=== PATIENT | male | born 1950 | race Caucasian/White ===

== ENCOUNTER 2017-09-27 17:39 | Inpatient (IN) | payer MEDICARE, BC ==
[~2017-09-27] VITALS: Ht 188 cm; Wt 101.2 kg
[2017-09-27 19:30] VITALS: BP 124/88
[2017-09-27] MEDS ORDERED: DiphenhydrAMINE HCL 25 MG CAPSULE PO PRN (20:15)
[2017-09-27] MEDS ORDERED: MAGNESIUM HYDROXIDE SUSPENSION 30 ML UDCUP PO PRN (20:15)
[2017-09-27] MEDS ORDERED: ACETAMINOPHEN 325 MG TABLET PO PRN (20:15)
[2017-09-27] MEDS ORDERED: DOCUSATE SODIUM 283 MG/5 ML MINI-ENEMA PR PRN (20:15)
[2017-09-27] MEDS: HYDROCODONE/ACETAMINOPHEN 10-325 MG TABLET PO PRN (21:43)
[2017-09-27] MEDS: SENNA 187 MG TABLET PO SCH (21:44)
[2017-09-27] MEDS: LOSARTAN POTASSIUM 25 MG TABLET PO SCH (21:44)
[2017-09-27] MEDS: DOCUSATE SODIUM 100 MG CAPSULE PO SCH (21:44)
[2017-09-27] MEDS: PREGABALIN 75 MG CAPSULE PO SCH (21:45)
[2017-09-27] MEDS: PANTOPRAZOLE SODIUM 40 MG DR TABLET PO SCH (21:45)
[2017-09-27] MEDS: DIVALPROEX SODIUM 500 MG ER TABLET PO SCH (21:45)
[2017-09-27 22:05] LABS: APPEARANCE,URINE CLEAR (CLEAR); BILIRUBIN,URINE NEGATIVE (NEGATIVE); GLUCOSE, URINE (UA) NEGATIVE (NEGATIVE); KETONES,URINE NEGATIVE (NEGATIVE); LEUKOCYTE ESTERASE ,URINE NEGATIVE (NEGATIVE); NITRATE,URINE NEGATIVE (NEGATIVE); OCCULT BLOOD,URINE NEGATIVE (NEGATIVE); PROTEIN,URINE NEGATIVE (NEGATIVE); UROBILINOGEN,URINE 0.2 mg/dL (<=1.0)
[2017-09-27 22:28] LABS: BACTERIA,URINE None Seen /HPF (None Seen); RBC,URINE 0-2 /HPF (0-2); SQUAMOUS EPITHELIAL CELL,UR Few /LPF (None Seen); WBC,URINE 0-2 /HPF (0-5)
[2017-09-28 00:08] VITALS: BP 117/69
[2017-09-28] MEDS: LEVOTHYROXINE SODIUM 50 MCG TABLET PO SCH (06:33)
[2017-09-28] MEDS: MODAFINIL 100 MG TABLET PO SCH (06:33)
[2017-09-28 07:00] LABS: BASOPHILS # (AUTO) 0.06 K/uL (0.00-0.20); EOSINOPHILS # (AUTO) 0.74 K/uL (0.00-0.70); EOSINOPHILS % (AUTO) 11.61 % (1.0-6.0); HEMOGLOBIN 12.7 g/dL (13.5-17.5); LYMPHOCYTES # (AUTO) 1.5 K/uL (1.0-4.8); LYMPHOCYTES % (AUTO) 23.7 % (22.0-44.0); MEAN CORPUSCULAR HEMOGLOBIN 32.4 pg (26.0-34.0); MEAN CORPUSCULAR HGB CONC 33.5 G/dL (31.0-37.0); MEAN CORPUSCULAR VOLUME 97 fL (80-100); MONOCYTES # (AUTO) 0.7 K/uL (0.1-1.0); MONOCYTES % (AUTO) 11.6 % (2.0-9.0); NEUTROPHILS # (AUTO) 3.3 K/uL (1.8-7.7); NEUTROPHILS % (AUTO) 52.1 % (40.0-70.0); PLATELET COUNT (AUTO) 165 K/uL (150-450); RED BLOOD CELL COUNT(AUTO) 3.92 MIL/uL (4.50-5.90); RED CELL DISTRIBUTION WIDTH 12.7 % (11.5-14.5)
[2017-09-28 07:24] LABS: ALBUMIN 3.2 g/dL (3.4-5.0); BILIRUBIN,TOTAL 0.4 mg/dL (0.1-1.0); CALCIUM, TOTAL 9.3 mg/dL (8.8-10.5); CREATININE 1.36 mg/dL (0.60-1.30); TOTAL PROTEIN, SERUM 6.7 g/dL (6.4-8.2)
[2017-09-28 07:35] VITALS: BP 126/78
[2017-09-28] MEDS: LamoTRIgine 100 MG TABLET PO SCH (08:28)
[2017-09-28] MEDS: HYDROCODONE/ACETAMINOPHEN 10-325 MG TABLET PO PRN ×3 (08:28→15:22)
[2017-09-28] MEDS: DIVALPROEX SODIUM 500 MG ER TABLET PO SCH ×2 (08:29→20:52)
[2017-09-28] MEDS: LOSARTAN POTASSIUM 25 MG TABLET PO SCH ×3 (08:29→21:00)
[2017-09-28] MEDS: TAMSULOSIN HCL 0.4 MG CAPSULE PO SCH (08:29)
[2017-09-28] MEDS: PREGABALIN 75 MG CAPSULE PO SCH ×4 (08:29→20:52)
[2017-09-28] MEDS: DOCUSATE SODIUM 100 MG CAPSULE PO SCH ×2 (08:29→20:53)
[2017-09-28] MEDS: PANTOPRAZOLE SODIUM 40 MG DR TABLET PO SCH ×2 (08:30→20:52)
[2017-09-28] MEDS: FENOFIBRATE 160 MG TABLET PO SCH (09:00)
[2017-09-28] MEDS ORDERED: LITHIUM CARBONATE 300 MG TABLET PO SCH (09:00)
[2017-09-28 15:07] VITALS: BP 105/59
[2017-09-28 20:50] VITALS: BP 101/60
[2017-09-28] MEDS: SENNA 187 MG TABLET PO SCH (20:52)
[2017-09-29] VITALS: BP 114/72
[2017-09-29] MEDS ORDERED: LEVO50 PO (02:00)
[2017-09-29] MEDS ORDERED: MODA100 PO (02:00)
[2017-09-29] MEDS ORDERED: PREG75 PO (02:00)
[2017-09-29] MEDS ORDERED: HYDR-4061 PO (02:00)
[2017-09-29] MEDS ORDERED: LITH450CRT PO (02:00)
[2017-09-29] MEDS ORDERED: OMEP20 PO (02:00)
[2017-09-29] MEDS ORDERED: LOSA50TA37 PO (02:00)
[2017-09-29] MEDS ORDERED: FENO67 PO (02:00)
[2017-09-29] MEDS ORDERED: LAMO100 PO (02:00)
[2017-09-29] MEDS ORDERED: CETI-290 PO (02:00)
[2017-09-29] MEDS: LEVOTHYROXINE SODIUM 50 MCG TABLET PO SCH (06:09)
[2017-09-29] MEDS: MODAFINIL 100 MG TABLET PO SCH (06:10)
[2017-09-29] MEDS: TAMSULOSIN HCL 0.4 MG CAPSULE PO SCH (08:43)
[2017-09-29] MEDS: DOCUSATE SODIUM 250 MG CAPSULE PO SCH ×2 (08:43→21:00)
[2017-09-29] MEDS: LOSARTAN POTASSIUM 25 MG TABLET PO SCH ×2 (08:43→21:03)
[2017-09-29] MEDS: LamoTRIgine 100 MG TABLET PO SCH (08:43)
[2017-09-29] MEDS: PANTOPRAZOLE SODIUM 40 MG DR TABLET PO SCH ×2 (08:43→21:04)
[2017-09-29] MEDS: DIVALPROEX SODIUM 500 MG ER TABLET PO SCH ×2 (08:43→21:04)
[2017-09-29] MEDS: LITHIUM CARBONATE 450 MG ER TABLET PO SCH (08:44)
[2017-09-29] MEDS: PREGABALIN 75 MG CAPSULE PO SCH ×4 (08:44→21:04)
[2017-09-29] MEDS: ENOXAPARIN SODIUM 40 MG/0.4 ML PF SYRINGE SQ SCH (08:44)
[2017-09-29] MEDS: FENOFIBRATE 160 MG TABLET PO SCH (08:44)
[2017-09-29 09:25] VITALS: BP 120/72
[2017-09-29] MEDS: HYDROCODONE/ACETAMINOPHEN 10-325 MG TABLET PO PRN ×3 (09:25→21:04)
[2017-09-29 15:08] VITALS: BP 116/68
[2017-09-29] MEDS: SENNA 187 MG TABLET PO SCH (21:00)
[2017-09-29] MEDS ORDERED: NYSTATIN 15 GM POWDER BOTTLE TP SCH (21:00)
[2017-09-29 21:04] VITALS: BP 115/71
[2017-09-29 23:36] VITALS: BP 112/69
[2017-09-30] MEDS: LEVOTHYROXINE SODIUM 50 MCG TABLET PO SCH (05:46)
[2017-09-30] MEDS: MODAFINIL 100 MG TABLET PO SCH (05:47)
[2017-09-30 07:43] VITALS: BP 124/77
[2017-09-30] MEDS: LITHIUM CARBONATE 450 MG ER TABLET PO SCH (09:32)
[2017-09-30] MEDS: LamoTRIgine 100 MG TABLET PO SCH (09:32)
[2017-09-30] MEDS: DIVALPROEX SODIUM 500 MG ER TABLET PO SCH ×2 (09:32→20:35)
[2017-09-30] MEDS: PANTOPRAZOLE SODIUM 40 MG DR TABLET PO SCH ×2 (09:32→20:36)
[2017-09-30] MEDS: FENOFIBRATE 160 MG TABLET PO SCH (09:32)
[2017-09-30] MEDS: LOSARTAN POTASSIUM 25 MG TABLET PO SCH ×2 (09:32→20:39)
[2017-09-30] MEDS: ENOXAPARIN SODIUM 40 MG/0.4 ML PF SYRINGE SQ SCH (09:32)
[2017-09-30] MEDS: PREGABALIN 75 MG CAPSULE PO SCH ×4 (09:33→20:36)
[2017-09-30] MEDS: DOCUSATE SODIUM 250 MG CAPSULE PO SCH ×2 (09:33→20:35)
[2017-09-30] MEDS: TAMSULOSIN HCL 0.4 MG CAPSULE PO SCH (09:33)
[2017-09-30] MEDS: HYDROCODONE/ACETAMINOPHEN 10-325 MG TABLET PO PRN (10:26)
[2017-09-30 16:00] VITALS: BP 99/53
[2017-09-30] MEDS: HYDROCODONE/ACETAMINOPHEN 5-325 MG TABLET PO PRN (16:25)
[2017-09-30] MEDS: SENNA 187 MG TABLET PO SCH (20:35)
[2017-09-30 20:40] VITALS: BP 114/68
[2017-10-01 04:00] VITALS: BP 132/68
[2017-10-01] MEDS: HYDROCODONE/ACETAMINOPHEN 5-325 MG TABLET PO PRN ×4 (04:08→20:09)
[2017-10-01] MEDS: LEVOTHYROXINE SODIUM 50 MCG TABLET PO SCH (06:03)
[2017-10-01] MEDS: MODAFINIL 100 MG TABLET PO SCH (06:03)
[2017-10-01 08:00] VITALS: BP 116/73
[2017-10-01] MEDS: FENOFIBRATE 160 MG TABLET PO SCH (10:04)
[2017-10-01] MEDS: DOCUSATE SODIUM 250 MG CAPSULE PO SCH ×2 (10:04→20:09)
[2017-10-01] MEDS: PREGABALIN 75 MG CAPSULE PO SCH ×4 (10:05→20:10)
[2017-10-01] MEDS: DIVALPROEX SODIUM 500 MG ER TABLET PO SCH ×2 (10:05→20:10)
[2017-10-01] MEDS: PANTOPRAZOLE SODIUM 40 MG DR TABLET PO SCH ×2 (10:05→20:10)
[2017-10-01] MEDS: LITHIUM CARBONATE 450 MG ER TABLET PO SCH (10:05)
[2017-10-01] MEDS: TAMSULOSIN HCL 0.4 MG CAPSULE PO SCH (10:05)
[2017-10-01] MEDS: LamoTRIgine 100 MG TABLET PO SCH (10:05)
[2017-10-01] MEDS: LOSARTAN POTASSIUM 25 MG TABLET PO SCH ×2 (10:05→20:09)
[2017-10-01] MEDS: NYSTATIN 15 GM POWDER BOTTLE TP SCH ×2 (10:06→20:10)
[2017-10-01] MEDS: ENOXAPARIN SODIUM 40 MG/0.4 ML PF SYRINGE SQ SCH (10:06)
[2017-10-01 15:41] VITALS: BP 108/64
[2017-10-01] MEDS: SENNA 187 MG TABLET PO SCH (20:09)
[2017-10-01 20:10] VITALS: BP 119/66
[2017-10-01 23:38] VITALS: BP 126/74
[2017-10-02] MEDS: MODAFINIL 100 MG TABLET PO SCH (06:31)
[2017-10-02] MEDS: LEVOTHYROXINE SODIUM 50 MCG TABLET PO SCH (06:31)
[2017-10-02 07:15] VITALS: BP 110/65
[2017-10-02] MEDS: FENOFIBRATE 160 MG TABLET PO SCH (08:28)
[2017-10-02] MEDS: DOCUSATE SODIUM 250 MG CAPSULE PO SCH ×2 (08:28→21:01)
[2017-10-02] MEDS: TAMSULOSIN HCL 0.4 MG CAPSULE PO SCH (08:28)
[2017-10-02] MEDS: LamoTRIgine 100 MG TABLET PO SCH (08:28)
[2017-10-02] MEDS: PREGABALIN 75 MG CAPSULE PO SCH ×4 (08:28→21:01)
[2017-10-02] MEDS: LOSARTAN POTASSIUM 25 MG TABLET PO SCH ×2 (08:28→21:01)
[2017-10-02] MEDS: ENOXAPARIN SODIUM 40 MG/0.4 ML PF SYRINGE SQ SCH (08:28)
[2017-10-02] MEDS: DIVALPROEX SODIUM 500 MG ER TABLET PO SCH ×2 (08:28→21:01)
[2017-10-02] MEDS: NYSTATIN 15 GM POWDER BOTTLE TP SCH ×3 (08:28→21:01)
[2017-10-02] MEDS: PANTOPRAZOLE SODIUM 40 MG DR TABLET PO SCH ×2 (08:28→21:01)
[2017-10-02] MEDS: LITHIUM CARBONATE 450 MG ER TABLET PO SCH (08:28)
[2017-10-02 09:07] VITALS: BP 137/82
[2017-10-02] MEDS: HYDROCODONE/ACETAMINOPHEN 5-325 MG TABLET PO PRN ×2 (09:08→13:37)
[2017-10-02] MEDS: POLYETHYLENE GLYCOL 3350 17 GM PACKET PO SCH (12:21)
[2017-10-02 15:34] VITALS: BP 102/55
[2017-10-02 21:00] VITALS: BP 116/71
[2017-10-02] MEDS: SENNA 187 MG TABLET PO SCH (21:03)
[2017-10-03 06:00] VITALS: BP 122/79
[2017-10-03] MEDS: LEVOTHYROXINE SODIUM 50 MCG TABLET PO SCH (06:17)
[2017-10-03] MEDS: MODAFINIL 100 MG TABLET PO SCH (06:17)
[2017-10-03 07:44] VITALS: BP 114/72
[2017-10-03] MEDS: NYSTATIN 15 GM POWDER BOTTLE TP SCH ×2 (09:15→20:50)
[2017-10-03] MEDS: POLYETHYLENE GLYCOL 3350 17 GM PACKET PO SCH (09:16)
[2017-10-03] MEDS: ENOXAPARIN SODIUM 40 MG/0.4 ML PF SYRINGE SQ SCH (09:16)
[2017-10-03] MEDS: DOCUSATE SODIUM 250 MG CAPSULE PO SCH ×2 (09:16→20:50)
[2017-10-03] MEDS: LITHIUM CARBONATE 450 MG ER TABLET PO SCH (09:16)
[2017-10-03] MEDS: PREGABALIN 75 MG CAPSULE PO SCH ×4 (09:16→20:50)
[2017-10-03] MEDS: TAMSULOSIN HCL 0.4 MG CAPSULE PO SCH (09:16)
[2017-10-03] MEDS: FENOFIBRATE 160 MG TABLET PO SCH (09:17)
[2017-10-03] MEDS: PANTOPRAZOLE SODIUM 40 MG DR TABLET PO SCH ×2 (09:17→20:50)
[2017-10-03] MEDS: LamoTRIgine 100 MG TABLET PO SCH (09:19)
[2017-10-03] MEDS: DIVALPROEX SODIUM 500 MG ER TABLET PO SCH ×2 (09:19→20:49)
[2017-10-03] MEDS: LOSARTAN POTASSIUM 25 MG TABLET PO SCH ×2 (09:19→20:50)
[2017-10-03] MEDS: HYDROCODONE/ACETAMINOPHEN 5-325 MG TABLET PO PRN ×3 (10:17→22:42)
[2017-10-03 15:54] VITALS: BP 98/56
[2017-10-03 20:27] VITALS: BP 117/67
[2017-10-03] MEDS: SENNA 187 MG TABLET PO SCH (20:49)
[2017-10-03 23:42] VITALS: BP 127/80
[2017-10-04] MEDS: MODAFINIL 100 MG TABLET PO SCH (06:25)
[2017-10-04] MEDS: LEVOTHYROXINE SODIUM 50 MCG TABLET PO SCH (06:25)
[2017-10-04 07:09] VITALS: BP 113/65
[2017-10-04] MEDS: LITHIUM CARBONATE 450 MG ER TABLET PO SCH (07:39)
[2017-10-04] MEDS: PREGABALIN 75 MG CAPSULE PO SCH ×4 (07:39→20:33)
[2017-10-04] MEDS: DIVALPROEX SODIUM 500 MG ER TABLET PO SCH ×2 (07:40→20:33)
[2017-10-04] MEDS: POLYETHYLENE GLYCOL 3350 17 GM PACKET PO SCH (07:40)
[2017-10-04] MEDS: ENOXAPARIN SODIUM 40 MG/0.4 ML PF SYRINGE SQ SCH (07:40)
[2017-10-04 07:41] LABS: HEMATOCRIT 39.3 % (41-53); HEMOGLOBIN 13.3 g/dL (13.5-17.5); MEAN CORPUSCULAR HEMOGLOBIN 32.2 pg (26.0-34.0); MEAN CORPUSCULAR HGB CONC 33.9 G/dL (31.0-37.0); MEAN CORPUSCULAR VOLUME 95 fL (80-100); PLATELET COUNT (AUTO) 227 K/uL (150-450); RED BLOOD CELL COUNT(AUTO) 4.14 MIL/uL (4.50-5.90); RED CELL DISTRIBUTION WIDTH 13.1 % (11.5-14.5)
[2017-10-04] MEDS: LamoTRIgine 100 MG TABLET PO SCH (07:41)
[2017-10-04] MEDS: HYDROCODONE/ACETAMINOPHEN 5-325 MG TABLET PO PRN ×3 (07:41→20:32)
[2017-10-04] MEDS: TAMSULOSIN HCL 0.4 MG CAPSULE PO SCH (07:42)
[2017-10-04] MEDS: LOSARTAN POTASSIUM 25 MG TABLET PO SCH ×2 (07:42→20:33)
[2017-10-04] MEDS: DOCUSATE SODIUM 250 MG CAPSULE PO SCH ×2 (07:42→20:33)
[2017-10-04] MEDS: PANTOPRAZOLE SODIUM 40 MG DR TABLET PO SCH ×2 (07:42→20:33)
[2017-10-04] MEDS: NYSTATIN 15 GM POWDER BOTTLE TP SCH ×2 (07:42→20:33)
[2017-10-04] MEDS: FENOFIBRATE 160 MG TABLET PO SCH (07:42)
[2017-10-04 12:12] LABS: BAND NEUTROPHILS % (MANUAL) 4 % (1-5); LYMPHOCYTES % (MANUAL) 42 % (22-44); SEGMENTED NEUTROPHILS % 54 % (40-70)
[2017-10-04 15:35] VITALS: BP 113/75
[2017-10-04 20:01] VITALS: BP 110/63
[2017-10-04] MEDS: SENNA 187 MG TABLET PO SCH (20:34)
[2017-10-05] MEDS ORDERED: FENO160 PO (01:08)
[2017-10-05] MEDS ORDERED: PANT40TA25 PO (01:08)
[2017-10-05] MEDS ORDERED: TAMS0.4C32 PO (01:13)
[2017-10-05] MEDS ORDERED: DOCU250C91 PO (01:13)
[2017-10-05] MEDS ORDERED: HYDR-4061 PO (01:13)
[2017-10-05] MEDS ORDERED: MIRALAX PO (01:13)
[2017-10-05] MEDS ORDERED: DIVA500T52 PO (01:13)
[2017-10-05 03:21] VITALS: BP 119/70
[2017-10-05] MEDS: HYDROCODONE/ACETAMINOPHEN 5-325 MG TABLET PO PRN (03:21)
[2017-10-05] MEDS: MODAFINIL 100 MG TABLET PO SCH (05:56)
[2017-10-05] MEDS: LEVOTHYROXINE SODIUM 50 MCG TABLET PO SCH (05:56)
[2017-10-05 07:17] VITALS: BP 107/65
[2017-10-05] MEDS: PREGABALIN 75 MG CAPSULE PO SCH (08:18)
[2017-10-05] MEDS: DOCUSATE SODIUM 250 MG CAPSULE PO SCH (08:18)
[2017-10-05] MEDS: TAMSULOSIN HCL 0.4 MG CAPSULE PO SCH (08:18)
[2017-10-05] MEDS: DIVALPROEX SODIUM 500 MG ER TABLET PO SCH (08:18)
[2017-10-05] MEDS: ENOXAPARIN SODIUM 40 MG/0.4 ML PF SYRINGE SQ SCH (08:19)
[2017-10-05] MEDS: LamoTRIgine 100 MG TABLET PO SCH (08:19)
[2017-10-05] MEDS: LOSARTAN POTASSIUM 25 MG TABLET PO SCH (08:19)
[2017-10-05] MEDS: LITHIUM CARBONATE 450 MG ER TABLET PO SCH (08:20)
[2017-10-05] MEDS: POLYETHYLENE GLYCOL 3350 17 GM PACKET PO SCH (08:20)
[2017-10-05] MEDS: PANTOPRAZOLE SODIUM 40 MG DR TABLET PO SCH (08:20)
[2017-10-05] MEDS: FENOFIBRATE 160 MG TABLET PO SCH (08:20)
[2017-10-05] MEDS: NYSTATIN 15 GM POWDER BOTTLE TP SCH (08:20)
[2017-10-05] MEDS ORDERED: SODIUM CL IRRIG SOLN BOTTLE 250 ML IRRIG ONE (10:01)
== END 2017-10-05 13:13 | disposition home or self-care (01) | DRG 74 ==
LOC: 2WR 19:30
PROVIDERS: ADMIT Physical Medicine & Rehabilitation; ATTEND Physical Medicine & Rehabilitation
DX: G83.4 Cauda equina syndrome (principal); E44.0 Moderate protein-calorie malnutrition; D64.9 Anemia, unspecified; T14.8XXA Other injury of unspecified body region, initial encounter; E03.9 Hypothyroidism, unspecified; E78.1 Pure hyperglyceridemia; E78.5 Hyperlipidemia, unspecified; F31.9 Bipolar disorder, unspecified; G24.01 Drug induced subacute dyskinesia; G47.33 Obstructive sleep apnea (adult) (pediatric); G47.419 Narcolepsy without cataplexy; I12.9 Hypertensive chronic kidney disease with stage 1 through stage 4 chronic kidney disease, or unspecified chronic kidney disease; K21.9 Gastro-esophageal reflux disease without esophagitis; N18.9 Chronic kidney disease, unspecified; N40.0 Benign prostatic hyperplasia without lower urinary tract symptoms; K59.00 Constipation, unspecified; L30.9 Dermatitis, unspecified; M79.7 Fibromyalgia; K59.03 Drug induced constipation; T40.605A Adverse effect of unspecified narcotics, initial encounter; Z98.1 Arthrodesis status; Z88.8 Allergy status to other drugs, medicaments and biological substances; Z79.891 Long term (current) use of opiate analgesic; Z86.19 Personal history of other infectious and parasitic diseases; Y92.89 Other specified places as the place of occurrence of the external cause; Z68.28 Body mass index [BMI] 28.0-28.9, adult; Z80.3 Family history of malignant neoplasm of breast; Z80.51 Family history of malignant neoplasm of kidney
CPT/HCPCS: 85007; 87081; 93970; 97110; 97116; 97162; 97165; 97530; 97535; 97537; 99366; J1650